=== PATIENT | male | born 1975 | race Caucasian/White ===

== ENCOUNTER 2017-10-26 17:22 | Emergency (ER) | payer OTHER, SELFPAY ==
[2017-10-26 17:24] VITALS: BP 146/81; PULSE 66; RESP 14; TEMP 37.1; O2SAT 100; BMI 22.8
--- NOTE | 2017-10-26 18:16 | ED.VISSUMM ---
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 Physical Examination: [] Distress head neck chest unremarkable abdomen soft nontender the lower extremity left is unremarkable he has full range of motion he has no signs of a cord or fullness or warmth or signs of trauma to the left lower extremity he complains subjectively of a fullness to the left calf there is no ankle edema neurovascular function of the left leg and right leg are unremarkable he has full range of motion of all major joints clinically looks well he denies chest pain fever cough Test Results: [] Emergency Department Course and Treatment: [] Complaints and the duplex techs are not here at this time he will be given Xarelto 20 g p.o. 1 time he was given instructions and requisition to have duplex scan tomorrow if it is positive he may require anticoagulation that we discussed with him he understands need to return tomorrow for the duplex study Treatment Plan: [] Disposition: [] Home stable Impression: [] Turn for DVT left calf fullness, history of DVT right leg, history of factor V deficiency This note was generated with [employer] dictation software. It may contain incorrect words, spelling, and punctuation that were not noted in review of the chart prior to signing ED Disposition - Plan for ED Patient: Chief Complaint: Other, Pain/Inj
--- NOTE | 2017-10-26 18:18 | ED.DEP ---
ED Disposition - Plan for ED Patient: Chief Complaint: Other, Pain/Inj Instructions: ED DVT Additional Instructions: Return tomorrow to have duplex scan done of your legs
[2017-10-26] MEDS: Rivaroxaban 20 MG Tablet PO (18:39)
[2017-10-26 18:43] VITALS: BP 122/73; PULSE 51; RESP 16; O2SAT 99
--- NOTE | 2017-10-26 18:43 | ED.RN ---
REVIEWED D/C INSTRUCTIONS, FOLLOW UP CARE, AND S/S THAT WOULD WARRANT A RETURN TO THE ED WITH PT. PT VERBALIZED AN UNDERSTANDING AND DENIES FURTHER QUESTIONS FOR THIS RN. PT SKIN P/W/D, RESP EVEN AND UNLABORED, PT A&O X 3, NO DISTRESS NOTED. PT AMBULATED OUT OF ED, GAIT STEADY.
== END 2017-10-26 18:44 | disposition home or self-care (01) ==
LOC: ED 18:10
PROVIDERS: Emergency Provider Emergency Medicine
DX: R68.89 Other general symptoms and signs (principal); D68.2 Hereditary deficiency of other clotting factors; Z86.718 Personal history of other venous thrombosis and embolism
CPT/HCPCS: 99283

== ENCOUNTER → 2017-10-27 13:02 | Outpatient (CLI) | payer OTHER, SELFPAY ==
--- NOTE | 2017-10-27 13:04 | VDLE_ITS ---
Reason For Study: LEG PAIN RIGHT LEFT CFV is compressible, spontaneous, phasic, GSV is normal. competent and demonstrates normal CFV is compressible, spontaneous, phasic, augmentation. competent, and demonstrates normal Procedure augmentation. Exam performed in department. Dist FV, POP V, T/P trunk, PER V and Gastrocs are dilated and non-compressible. FV thrombus is loosely attached. PTV is compressible. Interpretation Summary Acute deep vein thrombosis is noted in the left femoral vein. Acute deep vein thrombosis is noted in the left popliteal vein. Acute deep vein thrombosis is noted in the left tibio-peroneal trunk. Acute deep vein thrombosis is noted in the left peroneal vein. Acute deep vein thrombosis is noted in the left gastrocnemius vein. The remainder of the left lower extremity deep venous system is patent and compressible. The left greater saphenous vein appears patent and compressible segmentally. Ordering Physician: Jossy Pratt Referring Physician: OOTD Performed By: Katt Jarrett RVT
== END ==
PROVIDERS: Visit Provider Emergency Medicine
DX: I82.412 Acute embolism and thrombosis of left femoral vein (principal); I82.432 Acute embolism and thrombosis of left popliteal vein; I82.442 Acute embolism and thrombosis of left tibial vein; I82.492 Acute embolism and thrombosis of other specified deep vein of left lower extremity
CPT/HCPCS: 93971

== ENCOUNTER 2017-10-27 13:52 | Emergency (ER) | payer OTHER, SELFPAY ==
[2017-10-27 13:52] VITALS: BP 151/92; PULSE 45; RESP 16; TEMP 36.6; O2SAT 98; BMI 22.5
--- NOTE | 2017-10-27 14:15 | ED.VISSUMM ---
- ER Visit Summary Date of Service: 10/27/17 Chief Complaint: left lower extremity DVT History of Present Illness: The patient is a 42 M with history of factor V Leiden who presents with a confirmed DVT on ultrasound. Patient was seen yesterday for left calf pain while there was no vascular ultrasound available. Patient was started empirically on Xarelto and sent with an outpatient order for an ultrasound. Patient had that done today which showed a positive left lower extremity DVT in the distal femoral vein, popliteal vein, tibial and peroneal veins and gastrocnemius. Patient has a history of DVT in the right lower extremity. He sees a bus steward in [place], and is not currently on any chronic anticoagulation. He denies shortness of breath, chest pain, fever, dizziness, lightheadedness or any other complaints other than the left calf discomfort. Physical Examination: Vital signs: afebrile, hemodynamically stable, no hypoxia on room air General: well nourished, well developed, in no distress Skin: warm, dry, no rash, no pallor HEENT: normocephalic and atraumatic; PERRL, EOMI, moist mucous membranes Cardiovascular: regular rate and rhythm without murmurs, no peripheral edema, 2+ pulses all distal extremities Respiratory: No increased work of breathing, lungs are clear to auscultation bilaterally, no rales, rhonchi or wheezing Abdominal: Abdomen is soft, nontender with normoactive bowel sounds, no guarding or rebound, no masses MSK: Moves all extremities, no deformities, normal strength Neuro: Awake and alert, oriented ?4. No facial droop, sensation and motor function intact and symmetric Test Results: [] Emergency Department Course and Treatment: Patient is very well-appearing and has findings concerning for PE. He was given a prescription for Xarelto. He is to follow-up with his bus steward as soon as possible to discuss further treatment options given that he has had multiple DVTs now and does have factor V Leiden. Patient is driving home tomorrow to [place], which is a 6 hour car ride, and he will stop every hour to get up and walk around. He will use Advil as needed for pain. Patient is to return to the emergency department nearest him if he has any shortness of breath, chest pain, dizziness, syncope or other concerning symptoms. Patient was given a prescription card for free starter pack of Xarelto. Treatment Plan: [] Disposition: [] Impression: left [id number] DVT This note was generated with [employer] dictation software. It may contain incorrect words, spelling, and punctuation that were not noted in review of the chart prior to signing ED Disposition - Plan for ED Patient: Disposition: Home or Assisted Living Chief Complaint: Lower Extremity Injury Instructions: ED DVT Prescriptions: Rivaroxaban [Xarelto] 15 mg PO BID #42 tab Referrals: [facility] Doctor,Out of [Primary Care Provider] - Additional Instructions: Please fill the Xarelto prescription as soon as you leave today and start taking it this evening. He will take it twice daily for 3 weeks. Please follow-up as soon as possible with your bus steward that manages your factor V Leiden when you get back to [place]. If you develop any shortness of breath, chest pain, lightheadedness or dizziness, you pass out, have uncontrolled pain or any other concerns, please return to the nearest emergency department immediately for another evaluation or call 911.
--- NOTE | 2017-10-27 14:19 | ED.DCSUM_ITS ---
- ER Visit Summary Date of Service: 10/27/17 Chief Complaint: left lower extremity DVT History of Present Illness: The patient is a 42 M with history of factor V Leiden who presents with a confirmed DVT on ultrasound. Patient was seen yesterday for left calf pain while there was no vascular ultrasound available. Patient was started empirically on Xarelto and sent with an outpatient order for an ultrasound. Patient had that done today which showed a positive left lower extremity DVT in the distal femoral vein, popliteal vein, tibial and peroneal veins and gastrocnemius. Patient has a history of DVT in the right lower extremity. 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 He denies shortness of breath, chest pain, fever, dizziness, lightheadedness or any other complaints other than the left calf discomfort. Physical Examination: Vital signs: afebrile, hemodynamically stable, no hypoxia on room air General: well nourished, well developed, in no distress Skin: warm, dry, no rash, no pallor HEENT: normocephalic and atraumatic; PERRL, EOMI, moist mucous membranes Cardiovascular: regular rate and rhythm without murmurs, no peripheral edema, 2 + pulses all distal extremities Respiratory: No increased work of breathing, lungs are clear to auscultation bilaterally, no rales, rhonchi or wheezing Abdominal: Abdomen is soft, nontender with normoactive bowel sounds, no guarding or rebound, no masses MSK: Moves all extremities, no deformities, normal strength Neuro: Awake and alert, oriented ?4. No facial droop, sensation and motor function intact and symmetric Test Results: [] Emergency Department Course and Treatment: Patient is very well-appearing and has findings concerning for PE. He was given a prescription for Xarelto. He is to follow-up with his defensive secondary coach as soon as possible to discuss further treatment options given that he has had multiple DVTs now and does have factor V Leiden. Patient is driving home tomorrow to [place], which is a 6 hour car ride, and he will stop every hour to get up and walk around. He will use Advil as needed for pain. Patient is to return to the emergency department nearest him if he has any shortness of breath, chest pain, dizziness, syncope or other concerning symptoms. Patient was given a prescription card for free starter pack of Xarelto. Treatment Plan: [] Disposition: [] Impression: left [id number] DVT This note was generated with [employer] dictation software. It may contain incorrect words, spelling, and punctuation that were not noted in review of the chart prior to signing ED Disposition - Plan for ED Patient: Disposition: Home or Assisted Living Chief Complaint: Lower Extremity Injury Instructions: ED DVT Prescriptions: Rivaroxaban [Xarelto] 15 mg PO BID #42 tab Referrals: [facility] Doctor,Out of [Primary Care Provider] - Additional Instructions: Please fill the Xarelto prescription as soon as you leave today and start taking it this evening. He will take it twice daily for 3 weeks. Please follow -up as soon as possible with your defensive secondary coach that manages your factor V Leiden when you get back to [place]. If you develop any shortness of breath, chest pain, lightheadedness or dizziness, you pass out, have uncontrolled pain or any other concerns, please return to the nearest emergency department immediately for another evaluation or call 911.
--- NOTE | 2017-10-27 15:30 | DCINST.ED_ITS ---
ED Disposition - Plan for ED Patient: Disposition: Home or Assisted Living Chief Complaint: Lower Extremity Injury Instructions: ED DVT Prescriptions: Rivaroxaban [Xarelto] 15 mg PO BID #42 tab Referrals: [facility] Doctor,Out of [Primary Care Provider] - Additional Instructions: Please fill the Xarelto prescription as soon as you leave today and start taking it this evening. He will take it twice daily for 3 weeks. Please follow -up as soon as possible with your field sales trainer that manages your factor V Leiden when you get back to [place]. If you develop any shortness of breath, chest pain, lightheadedness or dizziness, you pass out, have uncontrolled pain or any other concerns, please return to the nearest emergency department immediately for another evaluation or call 911.
[2017-10-27 15:51] VITALS: BP 133/73; PULSE 72; RESP 15; O2SAT 100
--- NOTE | 2017-10-27 15:52 | ED.RN ---
dc instructions given. 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
== END 2017-10-27 15:52 | disposition home or self-care (01) ==
PROVIDERS: Emergency Provider Emergency Medicine
DX: I82.412 Acute embolism and thrombosis of left femoral vein (principal); I82.432 Acute embolism and thrombosis of left popliteal vein; I82.442 Acute embolism and thrombosis of left tibial vein; I82.4Y2 Acute embolism and thrombosis of unspecified deep veins of left proximal lower extremity; I82.4Z2 Acute embolism and thrombosis of unspecified deep veins of left distal lower extremity; D68.51 Activated protein C resistance; Z86.718 Personal history of other venous thrombosis and embolism; Z86.711 Personal history of pulmonary embolism
CPT/HCPCS: 93971; 99282